=== PATIENT | female | born 1975 | race Caucasian/White ===

== ENCOUNTER 2018-07-16 14:33 | Emergency (ER) | payer BC ==
--- NOTE | 2018-07-16 14:42 | UC ---
Laceration HPI - HPI Summary HPI Summary: 42 y/o female presents to the urgent care c/o Rt index finger laceration w/ a knife about 2 hrs ago. Pt reports she was helping her mother cutting some bread and she cut her RT index finger. bleeding lasted for 20min until it stopped w/ pressure. Pain is 5/10 at touch. Pt can move finger w/o any problem. Pt states she is UTD w/ tetanus vaccines and her PCP told her in less than 5 years. Pt denies numbness and tingling sensation, SOB, chest pain, abdominal pain,N/V/D. - History Of Current Complaint Stated Complaint: FINGER LAC Time Seen by Provider: 07/16/18 14:40 Hx Obtained From: Patient Laceration Location: Finger - RT index finger Mechanism Of Injury: Sharp Trauma Onset/Duration: Sudden Onset - 2hrs ago, Lasting Hours - 2 hrs ago, Still Present Severity: Mild Pain Intensity: 5 Pain Scale Used: 0-10 Numeric Aggravating Factors: Movement, Other: - touch Related History: Dominant Hand Right - Allergies/Home Medications Allergies/Adverse Reactions: Allergies Allergy/AdvReac Type Severity Reaction Status Date / Time Penicillins Allergy Hives Verified 07/16/18 14:48 Sulfa (Sulfonamide Allergy See Comment Verified 07/16/18 14:48 Antibiotics) PMH/Surg Hx/FS Hx/Imm Hx Previously Healthy: Yes Other Cardiovascular History: arrhytmia during - Family History Known Family History: Positive: Diabetes - Social History Occupation: Employed Full-time Lives: With Family - Immunization History Hx Tetanus, Diphtheria Vaccination: Yes - less than 5 years ago Review of Systems All Other Systems Reviewed And Are Negative: Yes Constitutional: Positive: Negative Skin: Positive: Other - laceration of the Rt index finger w/ a knife Eyes: Positive: Negative ENT: Positive: Negative Respiratory: Positive: Negative Cardiovascular: Positive: Negative Gastrointestinal: Positive: Negative Genitourinary: Positive: Negative Motor: Positive: Negative Neurovascular: Positive: Negative Musculoskeletal: Positive: Other: - RT index finger pain s/p laceration Neurological: Positive: Negative Psychological: Positive: Negative Is Patient Immunocompromised?: No Physical Exam - Summary Physical Exam Summary: Vital Signs Reviewed: Yes General: well developed, well nourished female sitting in the examining table w/ o any apparent distress Eye Exam: Normal Eyes: Positive: Conjunctiva Clear - PERRLA, EOMI, fundi grossly normal ENT: Positive: Normal ENT inspection, Hearing grossly normal, Pharynx normal, TMs normal Neck: Positive: Supple, Nontender, No Lymphadenopathy Respiratory: Positive: Chest non-tender, Lungs clear, Normal breath sounds, No respiratory distress Cardiovascular: Positive: RRR, No Murmur, Pulses Normal, Brisk Capillary Refill Abdomen Description: Positive: Nontender, No Organomegaly, Soft. Negative: CVA Tenderness (R), CVA Tenderness (L) Bowel Sounds: Positive: Present Musculoskeletal: Positive: Strength Intact, ROM Intact, No Edema Neurological: Positive: Alert, Muscle Tone Normal Psychological Exam: Normal Skin: Positive:Lateral side of distal RT index finger with a linear superficial laceration about 1.0cm in size, bleeding, no foreign body observed. mild tenderness to palpation, no ecchymosis around finger . FROM of RT hand and RT index finger, sensation intact, capillary refill brisk, and pulses WNL. Triage Information Reviewed: Yes Laceration Repair - Laceration Repair 1 Description: Linear - superfical linear laceration on the medial aspect close to nail Laceration Size After Repair: Length (cm) - 1.0cm Modified For Repair: No Type Injection: Local Anesthesia Used: 1.0% Lido - 2ml Cleansing Completed Via Routine Prep: Yes Irrigation With Pressure Irrigation Device: Yes Closure Material: Sutures - 3 Closure Method: Single Layer Suture Of: Skin, SQ Suture Type: Prolene - 5.0 Laceration Course/Dx - Course/Dx Course Of Treatment: 42 y/o female presents to the urgent care c/o Rt index finger laceration w/ a knife about 2 hrs ago. Pt reports she was helping her mother cutting some bread and she cut her RT index finger. bleeding lasted for 20min until it stopped w/ pressure. Pain is 5/10 at touch. Pt can move finger w/ o any problem. Pt states she is UTD w/ tetanus vaccines and her PCP told her in less than 5 years. Pt denies numbness and tingling sensation, SOB, chest pain, abdominal pain,N/V/D.Hx obtained. Pt w/ a superficial laceration on the medial aspect of the distal RT phalanx about 1.0cm in size.LACERATION PROCEDURE NOTE: . Copious irrigation was done with saline and the wound explored. There was no FB or deep structure injury noted. Timeout performed with the nurse Miranda. The procedure was explained and consent obtained. Lidocaine 1% ordered to anesthetize the area. Good anesthesia obtained with 2mL of 1% Lidocaine, Iodine applied around wound 3X. Sterile drape and prep were done There were 3 sutures placed with 5.0 Prolene . The length of the wound after closure was 1.0 cm. No debridement done. Wound was covered with bacitracin and sterile non adherent dressing. The Pt tolerated the procedure well without adverse effects. Pt neurovascular intact. Pt and mother advised if signs of infection develop like fever, redness, pain to return to the urgent care or f/u with PCP for further treatment. Otherwise f/u suture removal in 10-12 days. PT understood and agreed. Pt left the clinic ambulating. - Differential Dx - Laceration/Wound Differental Diagnoses: Abrasion, Laceration, Puncture Wound Provider Diagnoses: 1- Laceration repair of RT index finger Discharge - Sign-Out/Discharge Documenting (check all that apply): Patient Departure - D/c home All imaging exams completed and their final reports reviewed: No Studies - Discharge Plan Condition: Stable Disposition: HOME Patient Education Materials: Care For Your Stitches (ED), Laceration (ED) Referrals: [facility] [place] [facility]IAN REFERRAL [Outside] - 2 Weeks Additional Instructions: 1-Please apply Bacitrain topical antibiotic BID x 7 days to prevent infection over the wound. Keep wound clean and dry 2- F/u suture removal in 10-12 days w/ your PCP or here at the urgent care. 3-Take Ibuprofen or Tylenol PO q6-8hrs prn for pain or swelling. 4- If you develop fever or redness around your finger please f/u w/ your PCP or return to the Urgent care. - Billing Disposition and Condition Condition: STABLE Disposition: Home
[2018-07-16] MEDS ORDERED: Lidocaine 1%* 5 ML VIAL INJ ONE (14:53)
== END 2018-07-16 15:35 | disposition home or self-care (01) ==
LOC: UCEAST 14:33
DX: S61.210A Laceration without foreign body of right index finger without damage to nail, initial encounter (principal); W26.0XXA Contact with knife, initial encounter; Y92.9 Unspecified place or not applicable; Z88.0 Allergy status to penicillin; Z88.2 Allergy status to sulfonamides
CPT/HCPCS: 12001; 99201; G0463